=== PATIENT | male | born 1990 | race Caucasian/White ===

== ENCOUNTER 2016-08-21 07:18 | Emergency (ER) | payer OTHER ==
[~2016-08-21] VITALS: Ht 157.5 cm; Wt 65.3 kg
[2016-08-21 08:01] LABS: BASOPHIL % 0.4 % (0-2); PLATELET COUNT 223 x10^3mcL (130-400); RED CELL DISTRIBUTION WIDTH 12.7 % (11.5-14.5)
[2016-08-21 08:12] LABS: CALCIUM 9.2 mg/dL (8.5-10.1); CHLORIDE SERUM 101 mmol/L (98-107); CREATININE SERUM 0.9 mg/dL (0.7-1.3); GFR1 > 60 mL/min; GLUCOSE SERUM 116 mg/dL (74-106); POTASSIUM SERUM 3.9 mmol/L (3.5-5.1); SODIUM SERUM 140 mmol/L (136-145)
[2016-08-21 08:16] LABS: ALKALINE PHOSPHATASE 51 U/L (46-116); ALT/SGPT 24 U/L (16-63); AST/SGOT 10 U/L (15-37); BILIRUBIN TOTAL 0.9 mg/dL (0.20-1.00); CHOLESTEROL 178 mg/dL (<200); LIPASE 268 IU/L (73-393); TOTAL PROTEIN, SERUM 7.5 g/dL (6.4-8.2)
[2016-08-21 08:19] LABS: CHOLESTEROL/HDL RATIO 5.2; HDL CHOLESTEROL 34 mg/dL (40-60); TRIGLYCERIDES 236 mg/dL (<150)
[2016-08-21 08:30] LABS: FREE T4 1.56 ng/dL (0.76-1.46); FREE THYROXINE INDEX 3.5 ug/dL (1.4-4.5); T4(THYROXINE) 9.5 ug/dL (4.7-13.3)
[2016-08-21 09:19] LABS: T3 TOTAL 1.14 ng/mL
[2016-08-21 11:13] VITALS: BP 122/84
== END 2016-08-21 11:13 | disposition home or self-care (01) ==
LOC: ED 07:18
PROVIDERS: Specialist
DX: R10.84 Generalized abdominal pain (principal); R14.0 Abdominal distension (gaseous)
CPT/HCPCS: 83880; 84439; G0480; J0744; J1885; J2405; J3010; J7030; Q0092; Q9967

== ENCOUNTER 2016-08-24 08:57 | Inpatient (IN) | payer OTHER ==
[~2016-08-24] VITALS: Ht 157.5 cm; Wt 65.6 kg
[2016-08-24 10:42] LABS: BASOPHIL % 0.2 % (0-2); PLATELET COUNT 232 x10^3mcL (130-400); RED CELL DISTRIBUTION WIDTH 12.7 % (11.5-14.5)
[2016-08-24 11:00] LABS: CALCIUM 8.8 mg/dL (8.5-10.1); CARBON DIOXIDE 27.2 mmol/L (21-32); CHLORIDE SERUM 102 mmol/L (98-107); CREATININE SERUM 0.8 mg/dL (0.7-1.3); GFR1 > 60 mL/min; GLUCOSE SERUM 119 mg/dL (74-106); SODIUM SERUM 137 mmol/L (136-145)
[2016-08-24 11:03] LABS: ALBUMIN 3.9 g/dL (3.4-5.0); ALKALINE PHOSPHATASE 51 U/L (46-116); ALT/SGPT 23 U/L (16-63); AST/SGOT 9 U/L (15-37); BILIRUBIN TOTAL 0.5 mg/dL (0.20-1.00); LIPASE 164 IU/L (73-393); TOTAL PROTEIN, SERUM 7.4 g/dL (6.4-8.2)
[2016-08-24 13:57] VITALS: BP 114/78
[2016-08-24 14:23] LABS: PHOSPHOROUS 2.9 mg/dL (2.5-4.9)
[2016-08-24 17:43] VITALS: BP 106/64
[2016-08-24 20:08] LABS: AMPHETAMINE QUAL UR NONE DETECTED (NEG <=1000)
[2016-08-24 20:31] VITALS: BP 99/60
[2016-08-25 05:48] VITALS: BP 106/52
[2016-08-25 06:26] LABS: BASOPHIL % 0.3 % (0-2); PLATELET COUNT 213 x10^3mcL (130-400); RED CELL DISTRIBUTION WIDTH 12.9 % (11.5-14.5)
[2016-08-25 06:35] LABS: CALCIUM 8.7 mg/dL (8.5-10.1); CARBON DIOXIDE 28.1 mmol/L (21-32); CHLORIDE SERUM 103 mmol/L (98-107); CREATININE SERUM 0.7 mg/dL (0.7-1.3); GFR1 > 60 mL/min; GLUCOSE SERUM 90 mg/dL (74-106); POTASSIUM SERUM 3.9 mmol/L (3.5-5.1); SODIUM SERUM 137 mmol/L (136-145)
[2016-08-25 09:50] VITALS: BP 109/63
[2016-08-25 13:43] VITALS: BP 109/72
[2016-08-25 17:08] VITALS: BP 108/64
[2016-08-25 19:10] VITALS: BP 116/69
[2016-08-26 05:49] VITALS: BP 122/69
[2016-08-26 08:24] LABS: BASOPHIL % 0.8 % (0-2); PLATELET COUNT 253 x10^3mcL (130-400)
[2016-08-26 08:29] LABS: CALCIUM 9.1 mg/dL (8.5-10.1); CARBON DIOXIDE 29.3 mmol/L (21-32); CHLORIDE SERUM 102 mmol/L (98-107); CREATININE SERUM 0.8 mg/dL (0.7-1.3); GFR1 > 60 mL/min; GLUCOSE SERUM 105 mg/dL (74-106); MAGNESIUM 2.1 mg/dL (1.8-2.4); PHOSPHOROUS 4.1 mg/dL (2.5-4.9); POTASSIUM SERUM 4.1 mmol/L (3.5-5.1); SODIUM SERUM 138 mmol/L (136-145)
[2016-08-26 08:32] VITALS: BP 122/69
[2016-08-26 09:33] VITALS: BP 111/68
== END 2016-08-26 13:20 | disposition home or self-care (01) | DRG 249 ==
LOC: ED 08:57 → DU 12:37 → MU 12:37 → DU 13:47 → MU 08-25 09:37
PROVIDERS: Emergency Medicine; Family Medicine; ADMIT Family Medicine
DX: K52.9 Noninfective gastroenteritis and colitis, unspecified (principal); I10 Essential (primary) hypertension; E86.0 Dehydration; K42.9 Umbilical hernia without obstruction or gangrene; E78.5 Hyperlipidemia, unspecified; E05.90 Thyrotoxicosis, unspecified without thyrotoxic crisis or storm; F12.90 Cannabis use, unspecified, uncomplicated; D18.03 Hemangioma of intra-abdominal structures; K82.4 Cholesterolosis of gallbladder; Z68.26 Body mass index [BMI] 26.0-26.9, adult; Z72.89 Other problems related to lifestyle
CPT/HCPCS: 80307; J0744; J1885; J2405; J2765; J7030; Q9967